=== PATIENT | male | born 1985 | race Caucasian/White ===

== ENCOUNTER 2021-01-14 14:05 | Emergency (ER) | payer SELFPAY ==
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
[2021-01-14 14:14] VITALS: BP 112/79; PULSE 67; RESP 18; TEMP 36.4; O2SAT 100
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
== END 2021-01-14 15:02 | disposition home or self-care (01) ==
PROVIDERS: Emergency Provider Nurse Practitioner
DX: S62.91XA Unspecified fracture of right hand, initial encounter for closed fracture (principal); V29.9XXA Motorcycle rider (driver) (passenger) injured in unspecified traffic accident, initial encounter
CPT/HCPCS: 29125; 73130; 99214; G0463